=== PATIENT | male | born 1955 | race Caucasian/White ===

== ENCOUNTER 2018-01-31 16:20 | Observation (INO) | payer MEDICAID ==
[2018-01-31] MEDS ORDERED: NORMAL SALINE 1,000 ML IV ONE ×2 (16:52→21:07)
[2018-01-31 17:30] LABS: Hematocrit 38.7 % (42.0-52.0); Hemoglobin 13.3 gm/dL (13.5-18.0); Mean Cell Volume 97.5 fl (78-100); Mean Corpuscular Hemoglobin 33.5 pg (27-31); Mean Corpuscular Hgb Conc 34.4 g/dl (32-36); Neutrophil # 6.1 K/mm3 (1.3-6.0); Neutrophil % 68.4 % (42-75.0); Platelet Count 309 K/mm3 (150-450); Red Blood Count 3.97 M/mm3 (4.7-6.0); Red Cell Distribution Width 13.9 % (11.5-14.0)
[2018-01-31 17:35] LABS: ALT 58 U/L (19-67); AST 66 U/L (0-48); Albumin * 2.7 gm/dl (3.4-5.0); Alkaline Phosphatase * 82 U/L (50-170); Anion Gap 14.9 mmol/L (6.8-13.8); BUN/Creatinine Ratio 6.2 (9.0-21.6); Bilirubin, Total 0.4 mg/dL (0.0-1.1); Blood Urea Nitrogen 7 mg/dL (6-23); Ca. Corrected For Albumin 8.9 mg/dL (8.4-10.2); Calcium * 8.2 mg/dL (7.9-10.9); Chloride 102 mmol/L (97-106); Glucose * 104 mg/dL (70-110); Potassium 3.9 mmol/L (3.4-4.6); Salicylate 5.3 mg/dL (2.8-20.0); Sodium 138 mmol/L (132-142); TSH * 1.941 uIU/mL (0.358-3.74); Total Protein 6.2 gm/dL (6.2-8.2)
[2018-01-31 17:36] LABS: Troponin I Less than 0.017 ng/mL (0.00-0.10)
[2018-01-31] MEDS: MULTIVIT INFUSN,ADULT 4,VIT K 10 ML, THIAMINE HCL 100 MG in NORMAL SALINE 1,000 ML IV SCH (17:54)
--- NOTE | 2018-01-31 19:04 | ERNOTE ---
Medical Problem HPI - Narrative Date of Service: 01/31/18 - General Chief Complaint: Alcohol Intoxication Time Seen by Provider: 01/31/18 17:13 Source: patient Exam Limitations: no limitations - Immun/Allergies/Home Medications Immunizations: IMMUNIZATION HX Immunizations Up to Date Yes History of Influenza Vaccine No Hx Pneumococcal Vaccination No Allergies/Adverse Reactions: Allergies No Known Allergies Allergy (Verified 01/31/18 16:30) - History of Present History Narrative: patient presents to the ED via EMS after being found slumped in his car. He relates that he has been having some low BPs and actually held his BP meds yesterday, but took them today. he states him home BPs have been in in the upper 90s. here he had a BP in the 60s systolic. He denies any pain, no CP or SOB, no abdominal pain. He has been having some lightheadedness. No acute focal N/T/W. Timing: intermittent Severity: moderate Modifying Factors - (Improves): Present: other - nothing Modifying Factors - (Worsens): Present: other - nothing Review of Systems - Review of Systems Constitutional: Absent: fever EYE: Absent: vision changes ENT: Absent: sore throat Respiratory: Absent: shortness of breath Cardiology: Absent: chest pain Gastrointestinal/Abdominal: Absent: abdominal pain Genitourinary: Absent: dysuria Skin: Absent: rash All Other Systems: All systems neg except as marked Medical History (Last Updated 01/31/18 @ 18:59 by Shmuel Dodson MD) CAD (coronary artery disease) CAD (coronary artery disease) Social History: Preferred Language Y[place] Smoking Status Never smoker Abuse History No History of abuse Psych History No pertinent hx Alcohol Use heavy Drug Use none No Social History Section defined Physical Exam - Physical Exam General Appearance: Present: alert, no apparent distress, other - smels of alcohol Head Exam: Present: normal inspection, no evidence of injury Eye Exam: Normal inspection: bilateral, PERRL: bilateral Ears, Nose, Throat: Present: normal ENT inspection Neck: Present: normal inspection Respiratory: Present: no respiratory distress, normal breath sounds, no accessory muscle use, lungs clear Cardiovascular/Chest: Present: regular rate, rhythm, normal peripheral pulses Gastrointestinal/Abdominal: Present: normal bowel sounds, nontender, nondistended, soft Back Exam: Absent: CVA tenderness (R), CVA tenderness (L) Extremity Exam: Present: normal inspection, normal range of motion Neurological Exam: Present: alert, no motor/sensory deficits Skin Exam: Present: normal color, warm/dry ED Progress - Results and Orders Patient's Lab Results:: I have reviewed the patient's lab results. - Vital Signs Patient's Vital Signs:: I have reviewed the patient's vital signs. Vital Signs: Vital Signs 01/31/18 16:23 01/31/18 16:31 01/31/18 16:41 Temperature 36.2 C Pulse Rate 57 L 57 L 53 L Respiratory Rate 14 15 15 Blood Pressure 68/36 L 92/52 O2 Sat by Pulse Oximetry 99 100 95 - EKG EKG: NSR EKG read: Interp. by me EKG Comments: Sinus [place] rate 57. Non-specific changes, no clear evidence of STEMI - X-Ray X-Ray #1 X-Ray: chest Interpretation: Interp. by me X-ray Comments: No real time radiology readings. No acute process. - Progress/Reassessment Chief Complaint: Alcohol Intoxication Progress Note-Subjective: 01/31/18 19:01 No isabell findings of sepsis, not clear why his BP low. IV fluids given and BP improved to over 100. BP may be due to his BP meds melina I do not feel this explains his elevated lactic acid. No apparent seizure. I initially gave ABx in case sepsis was the diagnosis but I do not feel that is the case. With his elevated lactic acid and his alcohol intoxication I feel he should be observed. Patient is agreeable. I discussed the case with Dr Tidwell who will admit. Departure Clinical Impression: Hypotension, Elevated lactic acid level, Alcohol intoxication - Departure Disposition: Still a patient Condition: Fair
[2018-01-31 19:26] LABS: Urine Appearance Clear (CLEAR); Urine Bilirubin Negative (NEGATIVE); Urine Blood Negative /ul (NEGATIVE); Urine Color Yellow; Urine Ketone Negative (NEGATIVE)
[2018-01-31 19:27] LABS: Urine Bacteria None Seen; Urine Nitrite Negative (NEGATIVE); Urine Protein 15 mg/dL (NEGATIVE); Urine RBC None Seen /hpf (0-5); Urine Specific Gravity 1.015 SP.GR. (1.005-1.030); Urine Urobilinogen Normal (NORMAL); Urine WBC 0-5 /hpf (0-5); Urine pH 6.5 pH (5.0-7.0)
[2018-01-31] MEDS ORDERED: NICOTINE 21 MG PATC TD SCH (19:30)
[2018-01-31 19:59] LABS: Cocaine Ur Negative (NEGATIVE); Urine Barbiturate Negative (NEGATIVE); Urine Benzodiazepines Negative (NEGATIVE); Urine Opiates Negative (NEGATIVE); Urine PCP Negative (NEGATIVE); Urine THC Negative (NEGATIVE)
[2018-01-31] MEDS ORDERED: METOPROLOL TARTRATE 25 MG TABLET PO SCH (21:00)
--- NOTE | 2018-01-31 21:02 | HP ---
Chief Complaint - Chief Complaint Date of Service: 01/31/18 Time of Service: 20:34 Chief Complaint: hypotension History of Present Illness: Patient with PMHx of HTN and CAD, previous STEMI was found unresponsive in his car. On arrival to the ED, his systolic BP was 60. EDI was 247. After receiving fluids, his BP has improved, and he is responsive and answering questions. He states he has been vomiting and not eating over the last few we eks, and has been having hot flashes. He thinks he has lost 40-50 pounds over the last few months. He doesn't think he's had a fever, but doesn't take his temp. He has never had a colonoscopy. Smokes less than a ppd, and has been smoking for 2 years after quitting for 7 years. He has a baseline cough, not increased. He reports drinking 2 drinks earlier today, but also says he drank a fifth of whiskey. He drinks daily, 4-6 beers or a fifth of liquor. Medical History (Last Updated 01/31/18 @ 20:23 by Tia Bazzi RN) CAD (coronary artery disease) CAD (coronary artery disease) Hypertension Past heart attack Pneumonia Surgical History: Surgical History (Last Updated 01/31/18 @ 20:22 by Tia Bazzi RN) History of cholecystectomy History of heart artery stent History of hernia repair Family History: Family History Father Patient's father is Mother Patient's father is Other Patient's mother is Social History: Patient Lives/Resources Home Utilized Occupation retired Preferred Language Stateless Do you have any congregation or No cultural preference? Smoking Status Current every day smoker Have you smoked in the past 12 Yes months Abuse History No History of abuse Psych History No pertinent hx Alcohol Use heavy Drug Use none No Social History Section defined Review Of Systems (GEN) - Review of Systems Generalized/Overall Review: Absent: Fever Respiratory: Present: Cough. Absent: Shortness of Breath Cardiac: Absent: Chest Pain, Edema Abdominal: Present: Vomiting. Absent: Diarrhea Genitourinary: Absent: Dysuria Immunizations: IMMUNIZATION HX Immunizations Up to Date Yes History of Influenza Vaccine No Hx Pneumococcal Vaccination No Allergies/Adverse Reactions: Allergies Allergy/AdvReac Type Severity Reaction Status Date / Time No Known Allergies Allergy Verified 01/31/18 16:30 Home Medications: HOME MEDICATIONS Atorvastatin Calcium 80 mg PO HS 01/31/18 [Last Taken 01/30/18 20:00] Clopidogrel Bisulfate [Plavix] 75 mg PO DAILY 01/31/18 [Last Taken 01/31/18 08:00] Lisinopril [Prinivil] 10 mg PO DAILY 01/31/18 [Last Taken 01/31/18 08:00] Metoprolol Tartrate [Lopressor] 25 mg PO BID 01/31/18 [Last Taken 01/31/18 08:00] Nitroglycerin 0.4 mg SL PRN PRN 01/31/18 [Last Taken Unknown] Exam - Exam Vital Signs: Vital Signs - Last Taken Temp 36.4 C 01/31/18 19:57 Pulse 65 01/31/18 19:57 Resp 16 01/31/18 19:57 BP 120/87 01/31/18 19:57 Pulse Ox 99 01/31/18 19:57 Constitutional: Present: Alert, Oriented x3, No distress ENT Exam: Present: dry mucous membranes Neck: Absent: lymphadenopathy (R), lymphadenopathy (L) Respiratory: Present: lungs clear, normal breath sounds, no respiratory distress Cardiovascular/Chest: Present: regular rate, rhythm Abdomen: Present: Normal bowel sounds, soft, nontender Extremity: Absent: lower extremity edema Neurologic: Present: normal mood/affect Appearance: Present: appropriate appearance Eye contact: Present: cooperative, good eye contact Diagnostic Studies: Abnormal Lab Results 01/31/18 01/31/18 01/31/18 Range/Units 17:05 17:05 17:05 RBC 3.97 L (4.7-6.0) M/mm3 Hgb 13.3 L (13.5-18.0) gm/dL Hct 38.7 L (42.0-52.0) % MCH 33.5 H (27-31) pg Immature Gran # (Auto) 0.04 H (0.000-0.0310) K/mm3 Basophils % 1.2 H (0.0-1.0) % Neutrophils # 6.1 H (1.3-6.0) K/mm3 Anion Gap 14.9 H (6.8-13.8) mmol/L BUN/Creatinine Ratio 6.2 L (9.0-21.6) Lactic Acid, Venous 6.2 H* (0.4-2.0) mmol/L AST 66 H (0-48) U/L Albumin 2.7 L (3.4-5.0) gm/dl Urine Protein (NEGATIVE) mg/dL Acetaminophen Less than 0.2 L (10.0-30.0) mcg/mL Ethyl Alcohol 247.0 H (0.0-10.0) mg/dL 01/31/18 Range/Units 19:06 RBC (4.7-6.0) M/mm3 Hgb (13.5-18.0) gm/dL Hct (42.0-52.0) % MCH (27-31) pg Immature Gran # (Auto) (0.000-0.0310) K/mm3 Basophils % (0.0-1.0) % Neutrophils # (1.3-6.0) K/mm3 Anion Gap (6.8-13.8) mmol/L BUN/Creatinine Ratio (9.0-21.6) Lactic Acid, Venous (0.4-2.0) mmol/L AST (0-48) U/L Albumin (3.4-5.0) gm/dl Urine Protein 15 H (NEGATIVE) mg/dL Acetaminophen (10.0-30.0) mcg/mL Ethyl Alcohol (0.0-10.0) mg/dL Laboratory Results WBC 9.0 K/mm3 (4.0-10.5) 01/31/18 17:05 RBC 3.97 M/mm3 (4.7-6.0) L 01/31/18 17:05 Hgb 13.3 gm/dL (13.5-18.0) L 01/31/18 17:05 Hct 38.7 % (42.0-52.0) L 01/31/18 17:05 MCV 97.5 fl (78-100) 01/31/18 17:05 MCH 33.5 pg (27-31) H 01/31/18 17:05 MCHC 34.4 g/dl (32-36) 01/31/18 17:05 RDW 13.9 % (11.5-14.0) 01/31/18 17:05 Plt Count 309 K/mm3 (150-450) 01/31/18 17:05 MPV 9.0 fl (8-11.3) 01/31/18 17:05 Immature Gran % (Auto) 0.40 % (0.001-0.429) 01/31/18 17:05 Immature Gran # (Auto) 0.04 K/mm3 (0.000-0.0310) H 01/31/18 17:05 Neutrophils % 68.4 % (42-75.0) 01/31/18 17:05 Lymphocytes % 23.5 % (20-51) 01/31/18 17:05 Monocytes % 6.1 % (0.0-9) 01/31/18 17:05 Eosinophils % 0.4 % (0.0-3.0) 01/31/18 17:05 Basophils % 1.2 % (0.0-1.0) H 01/31/18 17:05 Nucleated RBC % 0.0 k/mm3 (0-1) 01/31/18 17:05 Neutrophils # 6.1 K/mm3 (1.3-6.0) H 01/31/18 17:05 Lymphocytes # 2.10 k/mm3 (1.5-3.5) 01/31/18 17:05 Monocytes # 0.6 k/mm3 (0.0-1.0) 01/31/18 17:05 Eosinophils # 0.0 k/mm3 (0.0-0.7) 01/31/18 17:05 Absolute Basophils 0.1 k/mm3 (0.0-0.1) 01/31/18 17:05 Sodium 138 mmol/L (132-142) 01/31/18 17:05 Plasma Sodium 138 mmol/L (130-142) 01/31/18 17:05 Potassium 3.9 mmol/L (3.4-4.6) 01/31/18 17:05 Chloride 102 mmol/L (97-106) 01/31/18 17:05 Carbon Dioxide 25.0 mmol/L (24-32.6) 01/31/18 17:05 Anion Gap 14.9 mmol/L (6.8-13.8) H 01/31/18 17:05 BUN 7 mg/dL (6-23) 01/31/18 17:05 Creatinine 1.13 mg/dL (0.4-1.4) 01/31/18 17:05 Est GFR (Non-Af Amer) 70 mL/min (60-130) D 01/31/18 17:05 BUN/Creatinine Ratio 6.2 (9.0-21.6) L 01/31/18 17:05 Random Glucose 104 mg/dL (70-110) 01/31/18 17:05 Lactic Acid, Venous 6.2 mmol/L (0.4-2.0) H* 01/31/18 17:05 Calcium 8.2 mg/dL (7.9-10.9) 01/31/18 17:05 Calcium Adj for Albumin 8.9 mg/dL (8.4-10.2) 01/31/18 17:05 Total Bilirubin 0.4 mg/dL (0.0-1.1) 01/31/18 17:05 AST 66 U/L (0-48) H 01/31/18 17:05 ALT 58 U/L (19-67) 01/31/18 17:05 Alkaline Phosphatase 82 U/L (50-170) 01/31/18 17:05 Troponin I Less than 0.017 ng/mL (0.00-0.10) 01/31/18 17:05 Total Protein 6.2 gm/dL (6.2-8.2) 01/31/18 17:05 Albumin 2.7 gm/dl (3.4-5.0) L 01/31/18 17:05 TSH 1.941 uIU/mL (0.358-3.74) 01/31/18 17:05 Urine Color Yellow 01/31/18 19:06 Urine Appearance Clear (CLEAR) 01/31/18 19:06 Urine pH 6.5 pH (5.0-7.0) 01/31/18 19:06 Ur Specific [place] 1.015 SP.GR. (1.005-1.030) 01/31/18 19:06 Urine Protein 15 mg/dL (NEGATIVE) H 01/31/18 19:06 Urine Glucose (UA) Negative mg/dL (NEGATIVE) 01/31/18 19:06 Urine Ketones Negative mg/dL (NEGATIVE) 01/31/18 19:06 Urine Blood Negative /ul (NEGATIVE) 01/31/18 19:06 Urine Nitrate Negative (NEGATIVE) 01/31/18 19:06 Urine Bilirubin Negative mg/dl (NEGATIVE) 01/31/18 19:06 Prot Sulfosalicylic Acd 1+ mg/dL (0) 01/31/18 19:06 Urine Urobilinogen Normal EU/dl (NORMAL) 01/31/18 19:06 Ur Leukocyte Esterase Negative /ul (NEGATIVE) 01/31/18 19:06 Urine RBC None seen /hpf (0-5) 01/31/18 19:06 Urine WBC 0-5 /hpf (0-5) 01/31/18 19:06 Ur Epithelial Cells 0-5 /hpf (0-5) 01/31/18 19:06 Urine Bacteria None seen (NONE) 01/31/18 19:06 Urine Culture Comments No culture indicated 01/31/18 19: Salicylates 5.3 mg/dL (2.8-20.0) 01/31/18 17:05 Urine Opiates Screen Negative (NEGATIVE) 01/31/18 19:30 Acetaminophen Less than 0.2 mcg/mL (10.0-30.0) L 01/31/18 17:05 Barbiturate Screen Negative (NEGATIVE) 01/31/18 19:30 Ur Phencyclidine Scrn Negative (NEGATIVE) 01/31/18 19:30 Urine Amphetamine Negative (NEGATIVE) 01/31/18 19:30 U Benzodiazepines Scrn Negative (NEGATIVE) 01/31/18 19:30 Urine Cocaine Screen Negative (NEGATIVE) 01/31/18 19:30 Urine Marijuana (THC) Negative (NEGATIVE) 01/31/18 19:30 Ethyl Alcohol 247.0 mg/dL (0.0-10.0) H 01/31/18 17:05 Assessment/Plan - Assessment/Plan (1) Hypotension Assessment: Most recent systolic BP in the 120's. Likely secondary to combination of taking his antihypertensives and alcohol. If he has lost significant weight, his BP may have improved, and the doses of his antihypertensives may need to be adjusted. No signs of infection. He did receive a dose of Rocephin in the ED. His lactate was 6.2 on admission, probably due to the combination of hypotension, and alcohol use, since alcohol raises d-lactate. Holding evening metoprolol dose. Problem: Resolved (2) Elevated lactic acid level Assessment: Improving. Secondary to alcohol and hypotension. continue fluids, and recheck every 2 hours until resolution. Problem: Acute (3) Alcohol intoxication Assessment: He is getting a banana bag currently, and will administer 250 mg thiamine tomorrow and Friday if still here. Will monitor for alcohol withdrawal. Problem: Acute (4) CAD (coronary artery disease) Assessment: Continue home plavix, metoprolol. Negative trop on admission. Problem: Acute
[2018-01-31] MEDS ORDERED: METOPROLOL TARTRATE 25 MG TABLET ONE (21:14)
[2018-02-01] MEDS: NORMAL SALINE 1,000 ML IV PRN ×2 (01:43→07:25)
[2018-02-01] MEDS: MULTIVIT INFUSN,ADULT 4,VIT K 10 ML, THIAMINE HCL 100 MG in NORMAL SALINE 1,000 ML IV SCH (08:25)
[2018-02-01] MEDS ORDERED: LISINOPRIL 10 MG TABLET PO SCH (09:00)
[2018-02-01] MEDS ORDERED: THIAMINE HCL 250 MG in NORMAL SALINE 50 ML IV SCH (09:00)
[2018-02-01] MEDS ORDERED: CLOPIDOGREL BISULFATE 75 MG TABLET PO SCH (09:00)
--- NOTE | 2018-02-01 10:08 | DS ---
(1) Hypotension Problem: Resolved (2) Elevated lactic acid level Problem: Acute (3) Alcohol intoxication Problem: Acute (4) CAD (coronary artery disease) Problem: Acute (5) Alcohol abuse Problem: Acute Description of Stay: Patient with PMHx of HTN and CAD, previous STEMI was found unresponsive in his car. On arrival to the ED, his systolic BP was 60. EDI was 247. After receiving fluids, his BP improved, and he regained responsiveness in the ED. He states he had been vomiting and not eating over the last few weeks, and has been having hot flashes. He thinks he has lost 40-50 pounds over the last few months. He doesn't think he's had a fever, but doesn't take his temp. He has never had a colonoscopy. Smokes less than a ppd, and has been smoking for 2 years after quitting for 7 years. He has a baseline cough, not increased. He reports drinking 2 drinks earlier on the day of admission, but also said he drank a fifth of whiskey. He drinks daily, 4-6 beers or a fifth of liquor. His BP recovered and remained at acceptable levels throughout the remained of admission. His lactate was 6.2 on admission, and resolved overnight with fluids. He is prescribed antihypertensives, and his BP is low lately. He did not know to hold those meds if his BP was low. With his weight loss, his antihypertensive regimen may need to be adjusted. Procedures Performed: none Results and Findings: Lab Pending Results 01/31/18 17:05: WBC 9.0, RBC 3.97 L, Hgb 13.3 L, Hct 38.7 L, MCV 97.5, MCH 33.5 H, MCHC 34.4, RDW 13.9, Plt Count 309, MPV 9.0, Immature Gran % (Auto) 0.40, Immature Gran # (Auto) 0.04 H, Neutrophils % 68.4, Lymphocytes % 23.5, Monocytes % 6.1, Eosinophils % 0.4, Basophils % 1.2 H, Nucleated RBC % 0.0, Neutrophils # 6.1 H, Lymphocytes # 2.10, Monocytes # 0.6, Eosinophils # 0.0, Absolute Basophils 0.1 01/31/18 17:05: Sodium 138, Plasma Sodium 138, Potassium 3.9, Chloride 102, Carbon Dioxide 25.0, Anion Gap 14.9 H, BUN 7, Creatinine 1.13, Est GFR (Non-Af Amer) 70 D, BUN/Creatinine Ratio 6.2 L, Random Glucose 104, Calcium 8.2, Calcium Adj for Albumin 8.9, Total Bilirubin 0.4, AST 66 H, ALT 58, Alkaline Phosphatase 82, Troponin I Less than 0.017, Total Protein 6.2, Albumin 2.7 L, TSH 1.941, Salicylates 5.3, Acetaminophen Less than 0.2 L, Ethyl Alcohol 247.0 H 01/31/18 17:05: Lactic Acid, Venous 6.2 H* 01/31/18 19:06: Urine Color Yellow, Urine Appearance Clear, Urine pH 6.5, Ur Specific [place] 1.015, Urine Protein 15 H, Urine Glucose (UA) Negative, Urine Ketones Negative, Urine Blood Negative, Urine Nitrate Negative, Urine Bilirubin Negative, Prot Sulfosalicylic Acd 1+, Urine Urobilinogen Normal, Ur Leukocyte Esterase Negative, Urine RBC None seen, Urine WBC 0-5, Ur Epithelial Cells 0-5, Urine Bacteria None seen, Urine Culture Comments No culture indicated 01/31/18 19:30: Urine Opiates Screen Negative, Barbiturate Screen Negative, Ur Phencyclidine Scrn Negative, Urine Amphetamine Negative, U Benzodiazepines Scrn Negative, Urine Cocaine Screen Negative, Urine Marijuana (THC) Negative 01/31/18 19:50: Lactic Acid, Venous 5.1 H* 01/31/18 21:42: Lactic Acid, Venous 4.8 H* 01/31/18 23:45: Lactic Acid, Venous 4.4 H* 02/01/18 03:01: Lactic Acid, Venous 2.2 H* 02/01/18 06:05: Lactic Acid, Venous 0.8 Discharge Location: Home Disposition: Home self-care Condition: Good Discharge Activity: Activity as tolerated Discharge Diet: General/regular food Complete Home Medications List: Complete Home Medication List: Atorvastatin Calcium 80 mg PO HS 01/31/18 Clopidogrel Bisulfate [Plavix] 75 mg PO DAILY 01/31/18 Lisinopril [Prinivil] 10 mg PO DAILY 01/31/18 Metoprolol Tartrate [Lopressor] 25 mg PO BID 01/31/18 Nitroglycerin 0.4 mg SL PRN PRN 01/31/18
[2018-02-01 11:11] VITALS: BP 128/66
== END 2018-02-01 11:14 | disposition home or self-care (01) ==
LOC: MS 16:20 → ER 16:20 → MS 19:40
PROVIDERS: ADMIT Family Medicine; ATTEND Family Medicine
DX: I25.10 Atherosclerotic heart disease of native coronary artery without angina pectoris; F10.129 Alcohol abuse with intoxication, unspecified; I95.9 Hypotension, unspecified; R74.0 Nonspecific elevation of levels of transaminase and lactic acid dehydrogenase [LDH]; F17.210 Nicotine dependence, cigarettes, uncomplicated; Z23 Encounter for immunization; I25.2 Old myocardial infarction
CPT/HCPCS: 36415; 71010; 71045; 80053; 80307; 80320; 80329; 81001; 83605; 84443; 84484; 85025; 87040; 90471; 90686; 93005; 96361; 96365; 96366; 96367; 99285; G0378; G0479; G0480; G0481